=== PATIENT | female | born 1965 | race American Indian/Alaskan Native ===

== ENCOUNTER 2017-09-17 13:04 | Emergency (ER) | payer SELFPAY ==
[2017-09-17] MEDS ORDERED: MOTRIN PO ONE (15:10)
--- NOTE | 2017-09-17 15:35 | Emergency Department Report ---
ED Lower Extremity HPI - General Chief Complaint: Extremity Problem,Nontraumatic Stated Complaint: HEAD ACHE/SWOLLEN LEGS/PAIN Time Seen by Provider: 09/17/17 15:08 Source: patient Mode of arrival: Ambulatory Limitations: No Limitations - History of Present Illness Initial Comments: This is a 51-year-old female nontoxic, well nourished in appearance, no acute signs of distress presents to the ED with c/o of left calf pain x5 days. Patient stated that pain radiates to her thigh and causes her to have headache. Patient curretnly in the ED denies any headache. Described headache as aching diffuse when pain occurs. Patient denies any trauma. 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 Patient denies any numbness, tingling, fever, chills, nausea, vomiting, chest pain, shortness of breath, headache, stiff neck. Patient denies any joint swelling or joint redness. Patient denies decreased range of motion. Patient stated has decreased gait due to pain. Patient denies any allergies or significant past medical history. MD Complaint: other (calf pain) -: days(s) (5) Place: work Severity: mild Severity scale (0 -10): 8 Improves With: immobilization Worsens With: movement, palpation Associated Symptoms: able to partially bear weight, ambulatory. denies: snap/ pop sensation, swelling, numbness, tingling, unable to bear weight - Related Data Previous Rx's Medication Instructions Recorded Last Taken Type Butalb/Acetamin/Caff 50-325-40 1 each PO Q6HR PRN #14 tablet 11/16/13 Unknown Rx [Fioricet] Cyclobenzaprine [Flexeril 10 MG 10 mg PO TID PRN #30 tablet 11/16/13 Unknown Rx TAB] HYDROcodone/APAP 5-325 [[place] 1 each PO Q6HR PRN #10 tablet 11/16/13 Unknown Rx 5/325] Ondansetron [Zofran Odt] 4 mg PO ONCE #14 tab.rapdis 11/16/13 Unknown Rx Sulfamethoxazole/Trimethoprim 1 each PO BID #14 tablet 11/16/13 Unknown Rx [Bactrim Ds] oxyCODONE /ACETAMINOPHEN [Percocet 1 tab PO Q6HR PRN #20 tablet 10/27/14 Unknown Rx 5/325] Acetaminophen/Codeine [Tylenol 1 tab PO Q6H PRN #12 tab 09/17/17 Unknown Rx /Codeine # 3 tab] Ibuprofen [Motrin] 600 mg PO Q8H PRN #30 tablet 09/17/17 Unknown Rx Allergies Allergy/AdvReac Type Severity Reaction Status Date / Time No Known Allergies Allergy Unverified 11/16/13 12:25 ED Review of Systems ROS: Stated complaint: HEAD ACHE/SWOLLEN LEGS/PAIN Other details as noted in HPI Constitutional: denies: chills, fever Eyes: denies: eye pain, eye discharge, vision change ENT: denies: ear pain, throat pain Respiratory: denies: cough, shortness of breath, wheezing Cardiovascular: denies: chest pain, palpitations Endocrine: no symptoms reported Gastrointestinal: denies: abdominal pain, nausea, diarrhea Genitourinary: denies: urgency, dysuria, discharge Musculoskeletal: arthralgia. denies: back pain, joint swelling Skin: denies: rash, lesions Neurological: denies: headache, weakness, paresthesias Psychiatric: denies: anxiety, depression Hematological/Lymphatic: denies: easy bleeding, easy bruising ED Past Medical Hx - Past Medical History Previous Medical History?: No Additional medical history: [place] Palsy - Surgical History Past Surgical History?: Yes Hx Open Heart Surgery: No Hx Pacemaker: No Hx Internal Defibrillator: No Hx Cholecystectomy: Yes (2008) - Social History Smoking Status: Never Smoker Substance Use Type: None - Medications Home Medications: Home Medications Medication Instructions Recorded Confirmed Last Taken Type Butalb/Acetamin/Caff 50-325-40 1 each PO Q6HR PRN #14 tablet 11/16/13 Unknown Rx [Fioricet] Cyclobenzaprine [Flexeril 10 MG 10 mg PO TID PRN #30 tablet 11/16/13 Unknown Rx TAB] HYDROcodone/APAP 5-325 [[place] 1 each PO Q6HR PRN #10 tablet 11/16/13 Unknown Rx 5/325] Ondansetron [Zofran Odt] 4 mg PO ONCE #14 tab.rapdis 11/16/13 Unknown Rx Sulfamethoxazole/Trimethoprim 1 each PO BID #14 tablet 11/16/13 Unknown Rx [Bactrim Ds] oxyCODONE /ACETAMINOPHEN [Percocet 1 tab PO Q6HR PRN #20 tablet 10/27/14 Unknown Rx 5/325] Acetaminophen/Codeine [Tylenol 1 tab PO Q6H PRN #12 tab 09/17/17 Unknown Rx /Codeine # 3 tab] Ibuprofen [Motrin] 600 mg PO Q8H PRN #30 tablet 09/17/17 Unknown Rx ED Physical Exam - General Limitations: No Limitations General appearance: alert, in no apparent distress - Head Head exam: Present: atraumatic, normocephalic - Eye Eye exam: Present: normal appearance Pupils: Present: normal accommodation - ENT ENT exam: Present: normal exam, mucous membranes moist - Neck Neck exam: Present: normal inspection, full ROM. Absent: tenderness, meningismus - Respiratory Respiratory exam: Present: normal lung sounds bilaterally. Absent: respiratory distress, wheezes, rales, rhonchi, stridor, chest wall tenderness, accessory muscle use, decreased breath sounds, prolonged expiratory - Cardiovascular Cardiovascular Exam: Present: regular rate, normal rhythm, normal heart sounds. Absent: bradycardia, tachycardia, irregular rhythm, systolic murmur, diastolic murmur, rubs, gallop - GI/Abdominal GI/Abdominal exam: Present: soft, normal bowel sounds. Absent: distended, tenderness, guarding, rebound, rigid, diminished bowel sounds - Rectal Rectal exam: Present: deferred - Extremities Exam Extremities exam: Present: normal inspection, full ROM, tenderness, normal capillary refill, calf tenderness. Absent: joint swelling - Expanded Lower Extremity Exam Left Hip exam: Present: normal inspection, full ROM. Absent: tenderness, swelling Upper Leg exam: Present: normal inspection, full ROM. Absent: tenderness, swelling Knee exam: Present: normal inspection, full ROM, full knee extension. Absent: tenderness, swelling, abrasion, laceration, ecchymosis, deformity, crepidus, dislocation, erythema, effusion, pain w/ pronation/supination, posterior draw sign, pain/laxity with valgus, pain/laxity with varus Lower Leg exam: Present: normal inspection, full ROM, tenderness. Absent: swelling, abrasion, laceration, ecchymosis, deformity, crepidus, dislocation, erythema, palpable cord, Teetee's sign Ankle exam: Present: normal inspection, full ROM. Absent: tenderness, swelling Foot/Toe exam: Present: normal inspection, full ROM. Absent: tenderness, swelling Neuro vascular tendon exam: Present: no vascular compromise. Absent: pulse deficit, abnormal cap refill, motor deficit, sensory deficit, tendon deficit, extremity cold to touch, pallor, abnormal 2-point discrimination, decreased fine /light touch, foot drop, peroneal nerve deficit, significant pain with passive ROM of distal joint Gait: Positive: observed and normal - Back Exam Back exam: Present: normal inspection, full ROM - Neurological Exam Neurological exam: Present: alert, oriented X3, normal gait - Psychiatric Psychiatric exam: Present: normal affect, normal mood - Skin Skin exam: Present: warm, dry, intact, normal color. Absent: rash ED Course Vital Signs 09/17/17 13:09 Temperature 98.6 F Pulse Rate 74 Respiratory 16 Rate Blood Pressure 115/74 O2 Sat by Pulse 99 Oximetry - Reevaluation(s) Reevaluation #1: 09/17/17 15:41 Patient is speaking in full sentences with no signs of distress noted. ED Lower Extremity MDM - Medical Decision Making This is a 51-year-old female that presents with left calf pain and superficial venous thrombosis. Patient is stable and was examined by me. Patient was discussed with Dr. Rodney about patient history, physical exam, and US doppler resutls and stated NSAIDs and warm compressors to be applied. No Xrays needed as no trauma reported by the patient. Patient does have normal gait with no tenderness and no joint swelling. No ecchymosis. no joint redness or swelling. Not warm to touch. No signs of cellulites present. Patient was instructed to apply warm compressors. Patient received Motrin for pain. Patient is discharged with Motrin. At time of discharge, the patient does not seem toxic or ill in appearance. No acute signs of distress noted. Patient agrees to discharge treatment plan of care. No further questions noted by the patient. Critical care attestation.: If time is entered above; I have spent that time in minutes in the direct care of this critically ill patient, excluding procedure time. ED Disposition Clinical Impression: Superficial vein thrombosis, Pain of left calf Disposition: DC-01 TO HOME OR SELFCARE Is pt being admited?: No Does the pt Need Aspirin: No Condition: Stable Additional Instructions: Follow-up with a primary care doctor in 3-5 days or if symptoms worsen and continue return to emergency room as soon as possible. Do not operate any machinery while taking Tylenol with codeine as this may cause drowsiness. Prescriptions: Acetaminophen/Codeine [Tylenol /Codeine # 3 tab] 1 tab PO Q6H PRN #12 tab PRN Reason: Pain , Severe (7-10) Ibuprofen [Motrin] 600 mg PO Q8H PRN #30 tablet PRN Reason: Pain Referrals: PRIMARY CARE, [Primary Care Provider] - 3-5 Days RODRIGUE HASSAN MD [Staff Physician] - 3-5 Days [facility] [Outside] - 3-5 Days [facility] [Outside] - 3-5 Days Forms: Work/School Release Form(ED)
[2017-09-17 17:02] VITALS: BP 120/72
--- NOTE | 2017-09-22 15:16 | Vascular Lab Report ---
Left Lower Extremity Venous Duplex Study: Reason for Exam: Pain and swelling of the left lower extremity. Comments on the Right: A limited duplex study was done of the proximal veins of the right lower extremity. All veins visualized are freely compressible without evidence of internal echogenicity. Flow is spontaneous and phasic throughout. No evidence of acute or chronic thrombus is seen in any of the vessels visualized. Comments on the Left: Superficial venous branches of the greater saphenous vein thrombosis in the proximal calf. The remaining veins visualized are freely compressible without evidence of internal echogenicity. Spontaneous and phasic flow is present proximally. Impression: Acute superficial venous thrombosis of isolating greater saphenous vein branches in the proximal left calf. No evidence of acute deep venous thrombosis in the left lower extremity.
== END 2017-09-17 17:01 | disposition home or self-care (01) ==
LOC: ED 13:04
DX: I82.812 Embolism and thrombosis of superficial veins of left lower extremity (principal); G51.0 Bell's palsy; Z90.49 Acquired absence of other specified parts of digestive tract
CPT/HCPCS: 99283